=== PATIENT | male | born 1960 | race Two or more races ===

== ENCOUNTER 2019-02-07 10:25 | Outpatient (CLI) | payer BC ==
[~2019-02-07 10:25] MED LIST: ATOR10TA PO; HYDR4TAB4 PO; LEVO137T24 PO; METF-440 PO; NIAC500T2 PO; OMEG1CAP55 PO; PARO25TA16 PO; ZOLP10TA2 PO
[2019-02-07 11:19] LABS: CALCIUM, SERUM 8.1 mg/dL (8.5-10.1)
[2019-02-07 11:54] LABS: PROSTATE SPECIFIC ANTIGEN SCR 6.97 ng/mL (0.00-4.00)
== END 2019-02-07 23:59 | disposition home or self-care (01) ==
LOC: LAB 10:25
PROVIDERS: ATTEND Nurse Practitioner Acute Care
DX: Z00.00 Encounter for general adult medical examination without abnormal findings (principal)
CPT/HCPCS: 36415; 80048-TC; 84153-TC